=== PATIENT | male | born 1990 ===

== ENCOUNTER 2018-01-30 14:54 | Emergency (ER) | payer OTHER ==
[~2018-01-30] VITALS: Ht 175.3 cm; Wt 65.8 kg
[2018-02-02] MEDS ORDERED: SULFAMETHOXAZO1 EACH PO (17:56)
== END 2018-01-30 17:10 | disposition home or self-care (01) ==
LOC: ER 14:54
DX: L02.31 Cutaneous abscess of buttock (principal)